=== PATIENT | female | born 1990 | race American Indian/Alaskan Native ===

== ENCOUNTER 2018-07-02 10:53 | Emergency (ER) | payer SELFPAY ==
--- NOTE | 2018-07-02 11:24 | Emergency Department Report ---
Minor Respiratory - HPI Chief Complaint: Sore Throat Stated Complaint: SORE THROAT/POSS PINK EYE Time Seen by Provider: 07/02/18 11:10 Duration: 2 Days Pain Location: Throat Severity: moderate Minor Respiratory: Yes Sore Throat, Yes Able to Tolerate Fluids, Yes Fever, No Rhinorrhea, No Ear Pain, No Cough, No Sick Contacts, No Hemoptysis, No Chest Pain, No Shortness of Breath Other History: sore throat x 3 days. eye redness. states gets strep every year. wears contacts but not currently, no eye pain, just crusting and drainage ED Review of Systems ROS: Stated complaint: SORE THROAT/POSS PINK EYE Other details as noted in HPI Comment: All other systems reviewed and negative Constitutional: chills, fever Eyes: eye discharge ENT: throat pain Respiratory: denies: cough ED Past Medical Hx - Past Medical History Previous Medical History?: No - Surgical History Past Surgical History?: No - Social History Smoking Status: Never Smoker Substance Use Type: None - Medications Home Medications: Home Medications Medication Instructions Recorded Confirmed Last Taken Type Amoxicillin [Amoxicillin TAB] 875 mg PO BID #20 tablet 07/02/18 Unknown Rx Tobramycin 0.3% [Tobrex] 1 drop OD Q6HR #1 bottle 07/02/18 Unknown Rx Minor Respiratory Exam - Exam General: Vital signs noted. No distress. Alert and acting appropriately. HEENT: Yes Pharyngeal Erythema, Yes Pharyngeal Exudates (1+ tonsils), Yes Moist Mucous Membranes, Yes Conjuctival Injection (RIGHT), No Rhinorrhea, No Frontal Tenderness, No Maxillary Tenderness Ear: Neither TM Bulge, Neither TM Erythema, Neither EAC Pain, Neither EAC Discharge Neck: Yes Adenopathy (tender AC) Lungs: Yes Good Air Exchange, No Wheezes, No Ronchi Heart: Yes Regular, No Murmur Abdomen: No Tenderness, No Peritoneal Signs Skin: No Rash, No Edema Neurologic: Alert and oriented, no deficits. Musculoskeletal: Unremarkable. ED Course Vital Signs 07/02/18 10:57 Temperature 99.6 F Pulse Rate 111 H Respiratory 16 Rate Blood Pressure 111/91 O2 Sat by Pulse 100 Oximetry ED Medical Decision Making - Medical Decision Making pt with suspected strep and conjunctivitis no signs abscess will treat fu pcp - Differential Diagnosis strep, viral pharyngitis, conjunctivitis Critical care attestation.: If time is entered above; I have spent that time in minutes in the direct care of this critically ill patient, excluding procedure time. ED Disposition Clinical Impression: Streptococcal tonsillitis Conjunctivitis Qualifiers: Conjunctivitis type: acute Acute conjunctivitis type: bacterial Laterality: left Qualified Code(s): H10.32 - Unspecified acute conjunctivitis, left eye Disposition: TO HOME OR SELFCARE Is pt being admited?: No Condition: Good Instructions: Strep Throat (ED), Conjunctivitis (ED) Prescriptions: Amoxicillin [Amoxicillin TAB] 875 mg PO BID #20 tablet Tobramycin 0.3% [Tobrex] 1 drop OD Q6HR #1 bottle Referrals: KATHY MONACO MD [Staff Physician] - 3-5 Days Forms: Work/School Release Form(ED) Time of Disposition: 11:23
[2018-07-02 11:34] VITALS: BP 112/65
== END 2018-07-02 11:31 | disposition home or self-care (01) ==
LOC: ED 10:53
DX: J03.00 Acute streptococcal tonsillitis, unspecified (principal); H10.9 Unspecified conjunctivitis
CPT/HCPCS: 99282

== ENCOUNTER 2021-06-22 20:21 | Emergency (ER) | payer MEDICAID, OTHER ==
[2021-06-22 21:18] VITALS: BP 110/77
[2021-06-22] MEDS ORDERED: HYDROcodone/ACETAMINOPHEN 5-325 MG TAB PO STA (22:03)
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
== END 2021-06-23 01:00 | disposition home or self-care (01) ==
LOC: ED 20:21
DX: M79.18 Myalgia, other site (principal); R51.9 Headache, unspecified; M54.2 Cervicalgia; F17.200 Nicotine dependence, unspecified, uncomplicated; V87.7XXA Person injured in collision between other specified motor vehicles (traffic), initial encounter; Y93.89 Activity, other specified; Y92.488 Other paved roadways as the place of occurrence of the external cause; Y99.8 Other external cause status
CPT/HCPCS: 99282